=== PATIENT | male | born 1965 | race American Indian/Alaskan Native ===

== ENCOUNTER 2021-01-19 08:22 | Day surgery (SDC) | payer OTHER ==
[2021-01-19] MEDS ORDERED: propofoL 200 MG/20 ML VIAL IV ONE (10:25)
[2021-01-19] MEDS ORDERED: fentaNYL 100 MCG/2 ML INJ ONE (10:25)
[2021-01-19] MEDS ORDERED: LIDOCAINE MPF (2%) 20 MG/1 ML VIAL 5 ML ONE (10:25)
[2021-01-19] MEDS ORDERED: ceFAZolin/STERILE WATER 2 GM/20 ML SYRINGE IV NR (10:30)
[2021-01-19] MEDS ORDERED: LACTATED RINGERS 1,000 ML ONE (10:37)
[2021-01-19] MEDS ORDERED: ceFAZolin/Water 2 GM/20 ML 2 GM/20 ML SYRINGE IV ONE (10:38)
[2021-01-19] MEDS ORDERED: MIDAZOLAM 2 MG/2 ML INJ ONE (10:53)
[2021-01-19] MEDS ORDERED: HYDROmorphone 1 MG/1 ML INJ IV PRN (10:57)
--- NOTE | 2021-01-19 10:58 | Anesthesia Day of Surgery ---
Anesthesia Day of Surgery - Day of Surgery Patient Examined: Yes Patient H&P Reviewed: Yes Patient is NPO: Yes
--- NOTE | 2021-01-19 10:59 | Anesthesia Consultation ---
Anesthesia Consult and Med Hx Date of service: 01/19/21 - Airway Anesthetic Teeth Evaluation: Chipped, Bridges ROM Head & Neck: Adequate Mental/Hyoid Distance: Adequate Mallampati Class: Class II Intubation Access Assessment: Good - Pre-Operative Health Status ASA Pre-Surgery Classification: ASA3 Proposed Anesthetic Plan: General - Pulmonary Hx Smoking: No Hx Respiratory Symptoms: No (+2FS) Hx Sleep Apnea: No (WENDY PRE SCREEN HIGH RISK) - Cardiovascular System Hx Hypertension: Yes (Cardiac records reviewed. 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 ) Hx Valvular Heart Disease: Yes (Mitral valve repair 2005) Hx Heart Murmur: Yes - Central Nervous System Hx Seizures: No Hx Psychiatric Problems: No - Gastrointestinal Hx Gastroesophageal Reflux Disease: No - Hematic Hx Anemia: No Hx Sickle Cell Disease: No - Other Systems Hx Alcohol Use: Yes (OCC. WINE OR VODKA) Hx Substance Use: No Hx Cancer: No
[2021-01-19] MEDS ORDERED: MIDAZOLAM 2 MG/2 ML INJ IV NR (11:00)
[2021-01-19] MEDS ORDERED: LACTATED RINGERS 1,000 ML IV SCH (11:00)
[2021-01-19 11:10] LABS: Hematocrit 46.1 % (35.5-45.6); Hemoglobin 14.8 gm/dl (11.8-15.2); Mean Corpuscular HGB Conc 32 % (32-34); Mean Corpuscular Volume 90 fl (84-94); Platelet Count 201 K/mm3 (140-440); Red Blood Count 5.12 M/mm3 (3.65-5.03); Red Cell Distribution Width 13.8 % (13.2-15.2)
[2021-01-19 11:16] LABS: INR 1.02 (0.87-1.13)
[2021-01-19 11:17] LABS: Partial Thromboplastin Time 35.9 Sec. (24.2-36.6)
[2021-01-19 11:22] LABS: Alanine Aminotransferase 22 units/L (7-56); BUN/Creatinine Ratio 11; Blood Urea Nitrogen 10 mg/dL (9-20); Hemolysis Index 10
[2021-01-19] MEDS ORDERED: SODIUM CHLORIDE 0.9% IRRIG SOLN 2000 ML IR ONE ×2 (11:28→12:07)
[2021-01-19] MEDS ORDERED: ONDANSETRON 4 MG/2 ML INJ IV PRN (11:30)
[2021-01-19] MEDS ORDERED: HYDROmorphone 1 MG/1 ML INJ ONE (11:47)
--- NOTE | 2021-01-19 12:55 | Operative Report ---
DATE OF SURGERY: 01/19/2021 PREOPERATIVE DIAGNOSES: 1. Hematuria. 2. Bladder mass. POSTOPERATIVE DIAGNOSES: 1. Hematuria. 2. Bladder mass. OPERATIVE PROCEDURES: Cystoscopy and transurethral resection of bladder tumor, greater than 5 cm, large. ATTENDING: Maurisio Bach MD HOUSING MANAGER: None. ANESTHESIA: General. ESTIMATED BLOOD LOSS: 50 mL. DRAINS: A 22-Serbian 3-way catheter. SPECIMENS: 1. Bladder tumor, right bladder neck. 2. Urine for cytology. COMPLICATIONS: None. INDICATIONS FOR PROCEDURE: The patient is a 55-year-old man who presented with hematuria and was found to have a questionable bladder mass on local cystoscopy. He was brought to the operating room for cystoscopy and biopsy as needed. DESCRIPTION OF PROCEDURE IN DETAIL: After induction of suitable anesthesia and proper positioning and preparation in the dorsal lithotomy position, a cystoscope was used to enter the bladder under direct visualization. The patient had no urethral strictures. His prostate had trilobar hypertrophy. Upon entering the bladder, it was clear that the patient had a tumor at the right bladder neck. The rest of the bladder was clear. The tumor at the bladder neck had a sessile appearance. It was not very papillary. A loop electrocautery was used to resect the tumor. The button electrocautery was then used to achieve hemostasis. We spent a long period of time ensuring hemostasis in the resection bed. The resection bed was large, greater than 5 cm. The tumor did appear to invade deeply into the bladder wall and the perivesical fat. Once hemostasis was assured, the cystoscope was removed and catheter was placed. It was a 3-way catheter and it was attached to continuous bladder irrigation for a short period of time. The patient was then awakened from anesthesia and transferred to the recovery room in stable condition. He tolerated the procedure well. He will return to the office in approximately 5 days for catheter removal. TID: [id number] RECEIPT: [id number] JI/WHIT
[2021-01-19] MEDS: HYDROmorphone 1 MG/1 ML INJ IV PRN ×3 (12:57→13:35)
[2021-01-19 14:31] VITALS: BP 139/94
--- NOTE | 2021-01-19 17:55 | Post Anesthesia Evaluation ---
- Post Anesthesia Evaluation Patient Participated: Yes Airway Patent: Yes Stable Respiratory Function: Yes Nausea/Vomiting: No Temp > 96.8F: Yes Pain Manageable: Yes Adequeate Hydration: Yes Anesthesia Complications: No Block Receding Appropriately: Not Applicable Patient on Ventilator: No
== END 2021-01-19 15:15 | disposition home or self-care (01) ==
LOC: OR 08:22
PROVIDERS: ATTEND Urology
DX: C67.5 Malignant neoplasm of bladder neck (principal); R31.9 Hematuria, unspecified; I10 Essential (primary) hypertension; Z79.899 Other long term (current) drug therapy; Z98.890 Other specified postprocedural states
CPT/HCPCS: 36415; 52500; 80053; 85027; 85610; 85730; 88112; 88305; 88307; J0690; J1170; J2250; J2704; J3010; J3490; J7120